=== PATIENT | male | born 1965 | race African-American/Black ===

== ENCOUNTER 2018-05-01 17:16 | Emergency (ER) | payer BC, OTHER ==
[~2018-05-01] VITALS: Ht 177.8 cm; Wt 142.9 kg
[~2018-05-01 17:16] MED LIST: ALPR0.254 PO; AMLO10TA6 PO; APIX5TAB PO; ASPI325T11 PO; ATOR20TA58 PO; CLON0.2T PO; DILT360C PO; DOCU-109 PO; DOCU100T11 PO; LOSA25TA5 PO; LOSA50TA2 PO; METO100T7 PO; SPIR25TA PO; TRAM50TA PO
[2018-05-01] MEDS ORDERED: IV NORMAL SALINE 1000ML BAG 1,000 ML IV SCH (17:32)
--- NOTE | 2018-05-01 17:48 | PHYS DOC ---
Past Medical History Past Medical History: A-Fib, Diverticulitis, Hypertension Additional Past Medical Histor: reflux,brain anyurism Past Surgical History: No Surgical History Additional Past Surgical Histo: none Alcohol Use: None Drug Use: None Adult General Chief Complaint Chief Complaint: PSYCH EVALUATION HPI HPI Patient is a 52 year old male who presents with hearing voices telling him to hurt himself/kill himself. He has a plan to take Tylenol PM. Denies having done this. This started approximately week ago. Patient also feels anxiety. He is unable to identify a triggering event. Patient denies any chest pain or palpitations. Reports having a history of atrial fibrillation but does not feel that he is in it currently. Patient denies any visual hallucinations. Patient denies any nausea or vomiting. Denies any recent changes in his medication.[] Review of Systems Review of Systems Constitutional: Denies fever or chills [] Eyes: Denies change in visual acuity, redness, or eye pain [] HENT: Denies nasal congestion or sore throat [] Respiratory: Denies cough or shortness of breath [] Cardiovascular: Reports a Racing heart rate[] GI: Denies abdominal pain, nausea, vomiting, bloody stools or diarrhea [] : Denies dysuria or hematuria [] Musculoskeletal: Denies back pain or joint pain [] Integument: Denies rash or skin lesions [] Neurologic: Denies headache, focal weakness or sensory changes [] Endocrine: Denies polyuria or polydipsia [] All other systems were reviewed and found to be within normal limits, except as documented in this note. Current Medications Current Medications Current Medications Medications (Trade) Dose Ordered Sig/Marisa Start Time Stop Time Status Last Admin Dose Admin Clonidine HCl (Catapres) 0.2 mg 1X ONCE 05/01/18 22:15 05/01/18 22:16 DC 05/01/18 22:46 0.2 MG Info (CONTRAST GIVEN -- Rx MONITORING) 1 each PRN DAILY PRN 05/02/18 00:45 05/02/18 02:42 DC Iohexol (Omnipaque 300 Mg/ml) 75 ml 1X ONCE 05/02/18 00:30 05/02/18 00:34 DC 05/02/18 00:43 75 ML Labetalol HCl (Normodyne Iv Push) 10 mg 1X ONCE 05/02/18 00:00 05/02/18 00:01 DC 05/02/18 00:10 10 MG Lorazepam (Ativan) 1 mg 1X ONCE 05/01/18 22:15 05/01/18 22:16 DC 05/01/18 22:45 1 MG Ondansetron HCl (Zofran) 4 mg PRN Q8HRS PRN 05/02/18 01:15 05/03/18 01:14 UNV Sodium Chloride 1,000 ml @ 1,000 mls/hr 1X ONCE 05/01/18 22:15 05/01/18 23:15 DC 05/01/18 22:15 1,000 MLS/HR Sodium Chloride (Normal Saline Flush) 10 ml QSHIFT PRN 05/01/18 17:45 05/02/18 02:42 DC 05/01/18 20:16 10 ML Allergies Allergies Allergies Coded Allergies Type Severity Reaction Last Updated Verified lisinopril Allergy Intermediate 12/31/15 Yes hydrocodone Adverse Reaction Intermediate Nausea and Vomiting 12/31/15 Yes Physical Exam Physical Exam Constitutional: Well developed, well nourished, no acute distress, non-toxic appearance. [] HENT: Normocephalic, atraumatic, bilateral external ears normal, oropharynx moist, no oral exudates, nose normal. [] Eyes: PERRLA, EOMI, conjunctiva normal, no discharge. [] Neck: Normal range of motion, no tenderness, supple, no stridor. [] Cardiovascular:Heart rate is tachycardic with a regular rhythm, no murmur [] Lungs & Thorax: Bilateral breath sounds clear to auscultation [] Abdomen: Bowel sounds normal, soft, no tenderness, no masses, no pulsatile masses. [] Skin: Warm, dry, no erythema, no rash. [] Back: No tenderness, no CVA tenderness. [] Extremities: No tenderness, no cyanosis, no clubbing, ROM intact, no edema. [] Neurologic: Alert and oriented X 3, normal motor function, normal sensory function, no focal deficits noted. [] Psychologic: Affect flat, judgement normal, mood normal. [] Physical exam by Dr. Gomes: Constitutional: , no acute distress, non-toxic appearance. [] HENT: Normocephalic, atraumatic, Eyes: Conjunctiva normal, no discharge. [] Neck: Normal range of motion, supple Cardiovascular: Tachycardia, CR < 2 sec Lungs & Thorax: Bilateral breath sounds clear to auscultation [] Skin: Warm, dry, no erythema, no rash. [] Extremities: No calf tenderness, ROM intact, no edema. [] Neurologic: Alert and oriented X 3, no focal deficits noted. [] Current Patient Data Vital Signs Vital Signs Date Time Temp Pulse Resp B/P (MAP) Pulse Ox O2 Delivery O2 Flow Rate FiO2 05/02/18 02:00 92 14 151/85 (107) 95 Room Air 05/01/18 17:20 97.3 97.3 Lab Values Laboratory Tests Test 05/01/18 17:52 White Blood Count 15.8 x10^3/uL (4.0-11.0) H Red Blood Count 5.14 x10^6/uL (4.30-5.70) Hemoglobin 15.1 g/dL (13.0-17.5) Hematocrit 42.9 % (39.0-53.0) Mean Corpuscular Volume 83 fL (79-100) Mean Corpuscular Hemoglobin 29 pg (25-35) Mean Corpuscular Hemoglobin Concent 35 g/dL (31-37) Red Cell Distribution Width 13.4 % (11.5-14.5) Platelet Count 397 x10^3/uL (140-400) Neutrophils (%) (Auto) 82 % (31-73) H Lymphocytes (%) (Auto) 12 % (24-48) L Monocytes (%) (Auto) 6 % (0-9) Eosinophils (%) (Auto) 0 % (0-3) Basophils (%) (Auto) 1 % (0-3) Neutrophils # (Auto) 13.0 x10^3uL (1.8-7.7) H Lymphocytes # (Auto) 1.8 x10^3/uL (1.0-4.8) Monocytes # (Auto) 0.9 x10^3/uL (0.0-1.1) Eosinophils # (Auto) 0.0 x10^3/uL (0.0-0.7) Basophils # (Auto) 0.1 x10^3/uL (0.0-0.2) Segmented Neutrophils % 86 % (35-66) H Lymphocytes % 8 % (24-48) L Monocytes % 3 % (0-10) Eosinophils % 2 % (0-5) Basophils % 1 % (0-3) Hypersegmented Neutrophils Present Toxic Vacuolation Slight Platelet Estimate Adequate (ADEQUATE) Stomatocytes Occ D-Dimer (Megan) 0.53 ug/mlFEU (0.00-0.50) H Sodium Level 136 mmol/L (136-145) Potassium Level 4.6 mmol/L (3.5-5.1) Chloride Level 95 mmol/L (98-107) L Carbon Dioxide Level 24 mmol/L (21-32) Anion Gap 17 (6-14) H Blood Urea Nitrogen 18 mg/dL (8-26) Creatinine 1.6 mg/dL (0.7-1.3) H Estimated GFR (Cockcroft-Gault) 55.2 BUN/Creatinine Ratio 11 (6-20) Glucose Level 103 mg/dL (70-99) H Calcium Level 9.6 mg/dL (8.5-10.1) Total Bilirubin 0.5 mg/dL (0.2-1.0) Aspartate Amino Transferase (AST) 41 U/L (15-37) H Alanine Aminotransferase (ALT) 45 U/L (16-63) Alkaline Phosphatase 74 U/L (46-116) Troponin I Quantitative < 0.017 ng/mL (0.000-0.055) Total Protein 8.6 g/dL (6.4-8.2) H Albumin 3.8 g/dL (3.4-5.0) Albumin/Globulin Ratio 0.8 (1.0-1.7) L Salicylates Level < 2.8 mg/dL (2.8-20.0) L Salicylate Last Dose Date Unknown Salicylate Last Dose Time Unknown Acetaminophen Level < 2 mcg/ml (10-30) L Acetaminophen Last Dose Date Unknown Acetaminophen Last Dose Time Unknown Ethyl Alcohol Level < 10 mg/dL (0-10) Laboratory Tests 05/01/18 17:52 Laboratory Tests 05/01/18 17:52 EKG EKG EKG shows a sinus tachycardia, no ST elevation, normal axis, QTC at 458 ms[] Radiology/Procedures Radiology/Procedures PROCEDURE: CT ANGIOGRAPHY CHEST PQRS Compliance Statement: One or more of the following individualized dose reduction techniques were utilized for this examination: 1. Automated exposure control 2. Adjustment of the mA and/or kV according to patient size 3. Use of iterative reconstruction technique CT CHEST WITH CONTRAST, PULMONARY ANGIOGRAM History: elevated d-dimer; psych pt.;no chest symptoms Comparison: None. Technique: Helical CT of the chest was performed after the administration of 75 cc of Omnipaque 300 intravenous contrast according to PE protocol. Axial and coronal reconstructions were obtained. 3-D MIP images were constructed to better evaluate the pulmonary arteries. Findings: Pulmonary arteries are adequately opacified. Subsegmental pulmonary arteries in the bilateral lower lobes cannot be evaluated due to respiratory motion artifact. Given this limitation, there is no evidence of pulmonary embolism. There is no thoracic aortic dissection. The great vessels are normal caliber. Visualized thyroid is symmetric. There is moderate left gynecomastia. There is no adenopathy in the chest. Small calcified subcarinal lymph node. Cardiac size is normal, no pericardial effusion. There is no pleural effusion. Central airways are patent. A tiny pulmonary nodule could be obscured due to respiratory motion artifact. There is minimal dependent atelectasis in the right lower lobe. No lung consolidation. Fatty infiltration of the liver. No acute bone abnormality. IMPRESSION: 1. There is no CT evidence of pulmonary embolus. Fatty infiltration of the liver. Electronically signed by: Hai Choi MD (05/02/2018 1:38 AM) [facility] [place] Course & Med Decision Making Course & Med Decision Making Pertinent Labs and Imaging studies reviewed. (See chart for details) ED course: Patient arrived, was placed in bed, tolerated exam well. Patient was given medication which did improve his tachycardia slightly. Patient was evaluated by the PET team who recommended admission. Patient care was transferred to the night physician pending a call back from local [facility]. Further information was elaborated by the patch team who found that the patient has been off of his mental health medicine for approximately the past month and the voices started 2 weeks ago. Medical decision making: Concerned about suicidality in a patient with significant mental health history who is been off his medications. There is no evidence of significant toxidrome.[] GOMES: Sign out received from Dr. Barlow for patient pending psychiatric inpatient transfer. Patient accepted to [facility] but accepting physician requesting patient's SBP < 150. Patient seen and evaluated by myself. Patient continued with tachycardia despite 2 L NS bolusing and 2mg Ativan. Patient denies chest pain or pleuritic pain. D-dimer 0.53. CTA chest obtained and negative for PE. Patient also continued to be hypertensive. Labetalol provided. BP and HR with interval improvement. Patient safe for transfer for inpatient psychiatric admission for further evaluation and treatment. . Discussed findings and plan with patient, who acknowledges understanding and agreement. Dragon Disclaimer Dragon Disclaimer This electronic medical record was generated, in whole or in part, using a voice recognition dictation system. Departure Departure Impression: Primary Impression: Suicidal ideation Disposition: 05 TRANSFER OTHER ([facility]) Condition: STABLE Referrals: NO PCP (PCP) LING BARLOW DO May 01, 2018 17:48 GOMESWADE DO May 02, 2018 00:44
[2018-05-01] MEDS: 0.9 % SODIUM CHLORIDE 10 ML DISP.SYRIN. IV PRN ×2 (18:06→20:16)
[2018-05-01 18:12] LABS: BASO # 0.1 x10^3/uL (0.0-0.2); BASO % 1 % (0-3); EOS % 0 % (0-3); HEMATOCRIT 42.9 % (39.0-53.0); HEMOGLOBIN 15.1 g/dL (13.0-17.5); LYMPH # 1.8 x10^3/uL (1.0-4.8); LYMPH % 12 % (24-48); MEAN CORPUSCULAR HEMOGLOBIN 29 pg (25-35); MEAN CORPUSCULAR HGB CONC 35 g/dL (31-37); MEAN CORPUSCULAR VOLUME 83 fL (79-100); MONO # 0.9 x10^3/uL (0.0-1.1); MONO % 6 % (0-9); NEUT % 82 % (31-73); PLATELET COUNT 397 x10^3/uL (140-400); RED BLOOD COUNT 5.14 x10^6/uL (4.30-5.70); RED CELL DISTRIBUTION WIDTH 13.4 % (11.5-14.5); WHITE BLOOD COUNT 15.8 x10^3/uL (4.0-11.0)
[2018-05-01] MEDS ORDERED: ONDANSETRON PF 4 MG/2 ML VIAL. IV ONE (18:15)
[2018-05-01 18:24] LABS: CALCIUM 9.6 mg/dL (8.5-10.1); CREATININE 1.6 mg/dL (0.7-1.3); GFR 55.2; POTASSIUM 4.6 mmol/L (3.5-5.1)
[2018-05-01 18:30] LABS: ALBUMIN 3.8 g/dL (3.4-5.0); ALBUMIN/GLOBULIN RATIO 0.8 (1.0-1.7); TOTAL BILIRUBIN 0.5 mg/dL (0.2-1.0); TOTAL PROTEIN 8.6 g/dL (6.4-8.2)
[2018-05-01 18:32] LABS: ACETAMIN < 2 mcg/ml (10-30); ETHANOL < 10 mg/dL (0-10); SALIC < 2.8 mg/dL (2.8-20.0)
[2018-05-01 19:45] LABS: % BASOS 1 % (0-3); % EOS 2 % (0-5); % LYMPHS 8 % (24-48); % MONOS 3 % (0-10); % SEGS 86 % (35-66)
[2018-05-01 19:46] LABS: HYPERSEGS PRESENT; PLT ESTIMATE ADEQUATE (ADEQUATE); STOMATOCYTES OCC; TOXIC VACUOLATION SLIGHT
[2018-05-01] MEDS ORDERED: IV NORMAL SALINE 1000ML BAG 1,000 ML IV ONE (22:15)
[2018-05-01] MEDS ORDERED: cloNIDine HCL 0.1 MG TABLET PO ONE (22:15)
[2018-05-02] MEDS ORDERED: LABETALOL 20 MG/4 ML DISP.SYRIN. IVP ONE
[2018-05-02] MEDS ORDERED: IOHEXOL 300 MG/ML 100ML VIAL. IV ONE (00:30)
[2018-05-02] MEDS ORDERED: CONTRAST GIVEN. MC PRN (00:45)
[2018-05-02] MEDS ORDERED: ONDANSETRON PF 4 MG/2 ML VIAL. IV PRN (01:15)
--- NOTE | 2018-05-02 01:41 | RAD ---
PQRS Compliance Statement: One or more of the following individualized dose reduction techniques were utilized for this examination: 1. Automated exposure control 2. Adjustment of the mA and/or kV according to patient size 3. Use of iterative reconstruction technique CT CHEST WITH CONTRAST, PULMONARY ANGIOGRAM History: elevated d-dimer; psych pt.;no chest symptoms Comparison: None. Technique: Helical CT of the chest was performed after the administration of 75 cc of Omnipaque 300 intravenous contrast according to PE protocol. Axial and coronal reconstructions were obtained. 3-D MIP images were constructed to better evaluate the pulmonary arteries. Findings: Pulmonary arteries are adequately opacified. Subsegmental pulmonary arteries in the bilateral lower lobes cannot be evaluated due to respiratory motion artifact. Given this limitation, there is no evidence of pulmonary embolism. There is no thoracic aortic dissection. The great vessels are normal caliber. Visualized thyroid is symmetric. There is moderate left gynecomastia. There is no adenopathy in the chest. Small calcified subcarinal lymph node. Cardiac size is normal, no pericardial effusion. There is no pleural effusion. Central airways are patent. A tiny pulmonary nodule could be obscured due to respiratory motion artifact. There is minimal dependent atelectasis in the right lower lobe. No lung consolidation. Fatty infiltration of the liver. No acute bone abnormality. IMPRESSION: 1. There is no CT evidence of pulmonary embolus. Fatty infiltration of the liver. Electronically signed by: Hai Choi MD (05/02/2018 1:38 AM) [id number]
[2018-05-02 02:00] VITALS: BP 151/85
--- NOTE | 2018-05-02 03:23 | EKG ---
[facility] [address] [place] [address] Test Date: 2018-05-01 Test Time: 17:34:24 Pat Name: AYDEN BECKWITH Department: Room: Gender: Flagger: MA : 1965 Requested By: LING LATIF Order Number: [id number] Reading MD: Tristan Boyd MD Measurements Intervals [place] Rate: 123 P: 13 AR: 142 QRS: 2 QRSD: 82 T: 88 QT: 316 QTc: 458 Interpretive Statements SINUS TACHYCARDIA Electronically Signed On 05-02-2018 17:52:45 [employer]NIFE [employer] MACHINE by Tristan Boyd MD
== END 2018-05-02 02:40 | disposition short-term general hospital (02) ==
LOC: ER 17:16
DX: R45.851 Suicidal ideations (principal); R44.0 Auditory hallucinations; R00.0 Tachycardia, unspecified; F41.9 Anxiety disorder, unspecified; I48.91 Unspecified atrial fibrillation; I10 Essential (primary) hypertension; K21.9 Gastro-esophageal reflux disease without esophagitis; Z86.79 Personal history of other diseases of the circulatory system; Z88.5 Allergy status to narcotic agent; Z88.8 Allergy status to other drugs, medicaments and biological substances
CPT/HCPCS: 36415; 71275; 80053; 80329; 84484; 85007; 85025; 85379; 93005; 96374; 96375; 96376; 99285; G0480; G6039; J2060; J2405; J3490; J7030; Q9967